=== PATIENT | female | born 1960 | race American Indian/Alaskan Native ===

== ENCOUNTER 2017-09-10 09:25 | Emergency (ER) | payer OTHER, BC ==
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
[2017-09-10] MEDS ORDERED: FLEXERIL PO ONE (13:59)
[2017-09-10] MEDS ORDERED: NORCO 5/325 PO ONE (13:59)
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
[2017-09-10 18:59] VITALS: BP 153/70
== END 2017-09-10 18:55 | disposition home or self-care (01) ==
LOC: ED 09:25
DX: S42.035A Nondisplaced fracture of lateral end of left clavicle, initial encounter for closed fracture (principal); M54.5 Low back pain; M50.30 Other cervical disc degeneration, unspecified cervical region; M51.36 Other intervertebral disc degeneration, lumbar region; I10 Essential (primary) hypertension; E11.9 Type 2 diabetes mellitus without complications; V49.49XA Driver injured in collision with other motor vehicles in traffic accident, initial encounter; Y93.89 Activity, other specified; Y99.8 Other external cause status; Y92.89 Other specified places as the place of occurrence of the external cause
CPT/HCPCS: 72100; 72125; 72128; 72131